=== PATIENT | female | born 1960 | race African-American/Black ===

== ENCOUNTER 2018-02-11 16:56 | Emergency (ER) | payer BC ==
[2018-02-11 17:25] VITALS: BP 181/90
[2018-02-11] MEDS ORDERED: LORAZEPAM 0.5 MG TABLET PO ONE (17:29)
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
--- NOTE | 2018-02-11 21:57 | EKG REPORT ---
SEVERITY:- BORDERLINE ECG - SINUS RHYTHM PROBABLE LEFT ATRIAL ABNORMALITY : Confirmed by: Pinky Mcgraw 11-Feb-2018 21:56:21
== END 2018-02-11 18:39 | disposition home or self-care (01) ==
LOC: ER 16:56
DX: R07.89 Other chest pain (principal); I10 Essential (primary) hypertension; M79.1 Myalgia; Z88.2 Allergy status to sulfonamides
CPT/HCPCS: 93005; 93010; 99284